=== PATIENT | male | born 1985 | race Caucasian/White ===

== ENCOUNTER 2022-04-23 07:24 | Emergency (ER) | payer BC, OTHER ==
[~2022-04-23] VITALS: Ht 172.7 cm; Wt 63.7 kg
[2022-04-23 08:00] VITALS: BP 122/89
[2022-04-23] MEDS ORDERED: IBUPROFEN 600 MG TAB PO ONE (08:30)
== END 2022-04-23 08:47 | disposition home or self-care (01) ==
LOC: ER 07:24
DX: M54.50 Low back pain, unspecified (principal); Z88.0 Allergy status to penicillin
CPT/HCPCS: 72100